=== PATIENT | female | born 1955 | race African-American/Black ===

== ENCOUNTER 2016-09-01 11:21 | Emergency (ER) | payer OTHER ==
[2016-09-01 11:28] VITALS: TEMP 98.6; BMI 21.2
[2016-09-01] MEDS ORDERED: OXYCODONE/APAP 5/325MG COMBO TABLET PO ONE (11:52)
[2016-09-01] MEDS ORDERED: ALBUTEROL SO4 0.083% IH SOL 2.5 MG/3 ML VIAL.NEB. NEB ONE ×2 (11:52→12:03)
[2016-09-01] MEDS ORDERED: OXYCODONE/APAP 5/325MG COMBO TABLET ONE (12:03)
--- NOTE | 2016-09-01 12:06 | PDOC ---
History of Present Illness - General History Source: Patient, Old Records - History of Present Illness Initial Comments: 09/01/16 12:12 The patient is a 61 year old female with a significant past medical history of seizure, anxiety, HLD, osteoporosis, and arthritis who presents to the Emergency Department with complaints of cough and cold-like symptoms since . She reports experiencing non-productive cough and nasal congestion. Pt reports discomfort in her chest due to heavy sneezing. Pt reports taking NyQuil for her cold, with no relief. Pt also reports worsening chronic pain due to arthritis. She states that she is on 10 mg Percocet every 8 hours, but she ran out of meds yesterday and her next appointment with Dr. Montgomery is next Friday. She denies fever, chills, abdominal pain, nausea, vomiting, diarrhea, hematuria, dysuria, headache, dizziness. (-) recent travel (-) sick contact SH:current everyday smoker PCP: Dr. Jonathon Sheldon Neurologist: Dr. Torri Montgomery <Corry Longo - Last Filed: 09/01/16 12:15> - General History Source: Patient Exam Limitations: No Limitations <Jonnie Rivas - Last Filed: 09/03/16 21:22> - General Chief Complaint: Cold Symptoms Stated Complaint: COUGH, COLD Time Seen by Provider: 09/01/16 11:28 Past History <Corry Longo - Last Filed: 09/01/16 12:15> - Past Medical History Hypercholesterolemia: Yes Seizures: Yes - Immunization History Immunization Up to Date: Yes - Psycho/Social/Smoking Cessation Hx Anxiety: No Suicidal Ideation: No Smoking Status: Yes Smoking History: Current every day smoker Have you smoked in the past 12 months: Yes Number of Cigarettes Smoked Daily: 20 Information on smoking cessation initiated: No 'Breaking Loose' booklet given: 09/28/13 Hx Alcohol Use: No Drug/Substance Use Hx: No Substance Use Type: None Hx Substance Use Treatment: No <Jonnie Rivas - Last Filed: 09/03/16 21:22> - Past Medical History Allergies/Adverse Reactions: Allergies Allergy/AdvReac Type Severity Reaction Status Date / Time No Known Allergies Allergy Verified 09/01/16 11:28 Home Medications: Ambulatory Orders Calcium Carbonate/Vitamin D3 [Calcarb 600 W-Vitamin D Tab] 1 each PO BID Gabapentin 600 mg PO BID 11/25/13 Levetiracetam 1,000 mg PO BID 11/25/13 Meloxicam [Mobic -] 7.5 mg PO BID #14 tablet 11/25/13 Simvastatin [Zocor -] 20 mg PO HS 11/25/13 Polyethylene Glycol 3350 [Miralax 255 gm Btl -] 17 gm PO DAILY #1 bottle Shark Liver Oil/Petrolat,Wht [Anusol Ointment] 1 applic RC TID #1 tube 08/17/15 Albuterol Sulfate Inhaler - [Ventolin HFA Inhaler -] 1 - 2 inh PO Q4H PRN #1 inhaler 09/01/16 Guaifenesin 200 mg PO Q6H PRN #15 tablet 09/01/16 Oxycodone HCl/Acetaminophen [Percocet 10-325 mg Tablet] 1 each PO Q8H PRN #5 tablet MDD 3 09/01/16 Oxycodone HCl/Acetaminophen [Percocet 5-325 mg Tablet] 1 tab PO Q8H PRN #6 tablet MDD 3 09/01/16 Review of Systems - Review of Systems Able to Perform ROS?: Yes Comments:: 09/01/16 12:16 GENERAL/CONSTITUTIONAL: No fever or chills. No weakness. HEAD, EYES, EARS, NOSE AND THROAT: No change in vision. No ear pain or discharge. No sore throat. CARDIOVASCULAR: Yes: chest discomfort No shortness of breath. RESPIRATORY: Yes: cough, nasal congestion No wheezing. GASTROINTESTINAL: No nausea, vomiting, diarrhea or constipation. GENITOURINARY: No dysuria, frequency, or change in urination. MUSCULOSKELETAL: Yes: generalized chronic pain No joint or muscle swelling. SKIN: No rash NEUROLOGIC: No headache, vertigo, loss of consciousness, or change in strength/ sensation. ENDOCRINE: No increased thirst. No abnormal weight change. HEMATOLOGIC/LYMPHATIC: No anemia, easy bleeding, or history of blood clots. ALLERGIC/IMMUNOLOGIC: No hives or skin allergy. All Other Systems: Reviewed and Negative <Corry Longo - Last Filed: 09/01/16 12:15> *Physical Exam - Vital Signs Last Vital Signs Temp Pulse Resp BP Pulse Ox 98.6 F 98 H 20 115/72 98 09/01/16 11:25 09/01/16 11:25 09/01/16 11:25 09/01/16 11:25 09/01/16 11:25 - Physical Exam Comments: 09/01/16 12:18 GENERAL: +Viral syndrome appearance. Awake, alert, and fully oriented HEAD: No signs of trauma EYES: PERRLA, EOMI, sclera anicteric, conjunctiva clear ENT: Auricles normal inspection, hearing grossly normal, nares patent, oropharynx clear without exudates. Moist mucosa NECK: Normal ROM, supple, no lymphadenopathy, JVD, or masses LUNGS: Breath sounds equal, clear to auscultation bilaterally. No wheezes, and no crackles HEART: Regular rate and rhythm, normal S1 and S2, no murmurs, rubs or gallops ABDOMEN: Soft, nontender, normoactive bowel sounds. No guarding, no rebound. No masses EXTREMITIES: Normal range of motion, no edema. No clubbing or cyanosis. No cords, erythema, or tenderness NEUROLOGICAL: Cranial nerves II through XII grossly intact. Normal speech, normal gait SKIN: Warm, Dry, normal turgor, no rashes or lesions noted. <Corry Longo - Last Filed: 09/01/16 12:15> - Vital Signs Last Vital Signs Temp Pulse Resp BP Pulse Ox 98.6 F 98 H 20 115/72 98 09/01/16 11:25 09/01/16 11:25 09/01/16 11:25 09/01/16 11:25 09/01/16 11:25 <Jonnie Rivas - Last Filed: 09/03/16 21:22> ED Treatment Course - Medications Given in the ED: ED Medications Discontinued Medications Generic Name Dose Route Start Last Admin Trade Name Freq PRN Reason Stop Dose Admin Albuterol Sulfate 1 amp 09/01/16 11:52 09/01/16 12:06 Ventolin 0.083% Nebulizer Soln - NEB 09/01/16 11:53 1 amp ONCE ONE Administration Oxycodone/Acetaminophen 2 combo 09/01/16 11:52 09/01/16 12:06 Percocet 5/325 - PO 09/01/16 11:53 2 combo ONCE ONE Administration <Corry Longo - Last Filed: 09/01/16 12:15> Medical Decision Making - Medical Decision Making 09/01/16 12:03 A portion of this note was documented by scribe services under my direction. I have reviewed the details of the note, within reason, and agree with the documentation with the following case summary and management plan written by me. Patient treated in the ED. Nursing notes are reviewed and incorporated into the medical decision-making. Vital signs reviewed. Peripheral IV access obtained by the nurse, laboratory studies are drawn and sent, reviewed and interpreted by myself. Vital Signs Temp Pulse Resp BP Pulse Ox 98.6 F 98 H 20 115/72 98 09/01/16 11:25 09/01/16 11:25 09/01/16 11:25 09/01/16 11:25 09/01/16 11:25 61-year-old female with past medical history of chronic pain secondary to arthritis on 10 mg Percocets every 8 hours, current smoker, hyperlipidemia, seizure disorder presents to the emergency Department with cold like symptoms. Patient reports 3 days of the symptoms which she's having body aches, chest congestion, isn't congestion. Denies fevers or chills. Denies sick contacts. Patient also reports that she had ran out of her ten Percocets yesterday. Patient reports that she's been having worsening pain and has been taking extra dose or 2. I had instructed the patient that he typically do not fill out long- term pain medications. She tells me that her last occasion refill was on August 09 and is aware that she is ahead of schedule. I had confirmed this with [facility] registry Reference #: [id number]. The patient has an appointment with her doctor in 2 days. Will write 5 pills prescription for hold over. Supportive care for the viral syndrome. Pt's brother will picker tender helper the patient. I discussed the physical exam findings, ancillary test results and final diagnoses with the patient. I answered all of the patient's questions. The patient was satisfied with the care received and felt comfortable with the discharge plan and treatment plan. The patient will call their primary care physician within 24 hours to arrange follow-up and will return to the Emergency Department with any new, persistant or worsening symptoms. <Jonnie Rivas - Last Filed: 09/03/16 21:22> *DC/Admit/Observation/Transfer - Attestations Scribe Attestion: 09/01/16 12:19 Documentation prepared by Corry Longo, acting as medical equipment repairer for Jonnie Rivas MD. <Corry Longo - Last Filed: 09/01/16 12:15> - Discharge Dispostion Admit: No <Jonnie Rivas - Last Filed: 09/03/16 21:22> Diagnosis at time of Disposition: Viral syndrome Chronic pain Qualifiers: Chronic pain type: chronic pain syndrome Qualified Code(s): G89.4 - Chronic pain syndrome - Discharge Dispostion Disposition: HOME Condition at time of disposition: Stable - Prescriptions Prescriptions: Guaifenesin 200 mg PO Q6H PRN #15 tablet PRN Reason: Cough Oxycodone HCl/Acetaminophen [Percocet 10-325 mg Tablet] 1 each PO Q8H PRN #5 tablet MDD 3 PRN Reason: Pain Oxycodone HCl/Acetaminophen [Percocet 5-325 mg Tablet] 1 tab PO Q8H PRN #6 tablet MDD 3 PRN Reason: Pain Albuterol Sulfate Inhaler - [Ventolin HFA Inhaler -] 1 - 2 inh PO Q4H PRN #1 inhaler PRN Reason: Cough - Referrals Referrals: Jonathon Sheldon MD [Primary Care Provider] - Torri Banerjee MD [Staff Physician] - - Patient Instructions Printed Discharge Instructions: DI for Viral Upper Respiratory Infection -- Adult Additional Instructions: Take 2 puff of albuterol every 4 hours as needed for cough. Please take the cough medications prescribed to you as needed. Follow up with your doctor on Friday
[2016-09-01 12:34] VITALS: BP 132/79; PULSE 90
== END 2016-09-01 12:36 | disposition home or self-care (01) ==
LOC: JER 11:21
PROC: 3E0F7GC Introduction of Other Therapeutic Substance into Respiratory Tract, Via Natural or Artificial Opening (ICD-10-PCS; principal; 2016-09-01)
DX: B34.9 Viral infection, unspecified (principal); G89.4 Chronic pain syndrome; G40.909 Epilepsy, unspecified, not intractable, without status epilepticus; F41.9 Anxiety disorder, unspecified; M81.0 Age-related osteoporosis without current pathological fracture; M19.90 Unspecified osteoarthritis, unspecified site; F17.210 Nicotine dependence, cigarettes, uncomplicated
CPT/HCPCS: 94640; 99281-25

== ENCOUNTER 2016-09-04 03:47 | Emergency (ER) | payer OTHER ==
[2016-09-04 04:11] VITALS: BP 114/88; PULSE 82; TEMP 97.6; BMI 22.8
[2016-09-04] MEDS ORDERED: OXYCODONE/APAP 5/325MG COMBO TABLET PO ONE (04:22)
--- NOTE | 2016-09-04 04:23 | PDOC ---
History of Present Illness - General History Source: Patient <Giorgi Blanchard - Last Filed: 09/04/16 04:22> - General History Source: Patient Exam Limitations: No Limitations - History of Present Illness Initial Comments: 09/04/16 04:28 The patient is a 61 year old female with significant past medical history of hyperlipidemia, seizure disorder, and chronic pain who presents to the ED with generalized chronic pain. Patient reports she ran out of her prescription ( percocet) a couple of days ago and presents today with worsening pain. She states she is due for a refill in the morning. The patient denies fever, chills, cough, SOB, chest pain, and palpitations. The patient denies abdominal pain, nausea, vomiting, and diarrhea. Allergies: NKDA Social History: Current smoker (PPD) Past Surgical History: None reported PCP: Dr. Jonathon Sheldon <Rebecca Turcios - Last Filed: 09/04/16 04:28> - General Chief Complaint: Chronic pain Stated Complaint: GENERALIZED PAIN Time Seen by Provider: 09/04/16 04:16 Past History - Past Medical History Hypercholesterolemia: Yes Seizures: Yes - Immunization History Immunization Up to Date: Yes - Psycho/Social/Smoking Cessation Hx Anxiety: No Suicidal Ideation: No Smoking Status: Yes Smoking History: Current every day smoker Have you smoked in the past 12 months: Yes Number of Cigarettes Smoked Daily: 20 Information on smoking cessation initiated: No 'Breaking Loose' booklet given: 09/28/13 Hx Alcohol Use: No Drug/Substance Use Hx: No Substance Use Type: None Hx Substance Use Treatment: No <Giorgi Blanchard - Last Filed: 09/04/16 04:22> <Rebecca Turcios - Last Filed: 09/04/16 04:28> - Past Medical History Allergies/Adverse Reactions: Allergies Allergy/AdvReac Type Severity Reaction Status Date / Time No Known Allergies Allergy Verified 09/04/16 04:11 Home Medications: Ambulatory Orders Calcium Carbonate/Vitamin D3 [Calcarb 600 W-Vitamin D Tab] 1 each PO BID Gabapentin 600 mg PO BID 11/25/13 Levetiracetam 1,000 mg PO BID 11/25/13 Meloxicam [Mobic -] 7.5 mg PO BID #14 tablet 11/25/13 Simvastatin [Zocor -] 20 mg PO HS 11/25/13 Polyethylene Glycol 3350 [Miralax 255 gm Btl -] 17 gm PO DAILY #1 bottle Shark Liver Oil/Petrolat,Wht [Anusol Ointment] 1 applic RC TID #1 tube 08/17/15 Albuterol Sulfate Inhaler - [Ventolin HFA Inhaler -] 1 - 2 inh PO Q4H PRN #1 inhaler 09/01/16 Guaifenesin 200 mg PO Q6H PRN #15 tablet 09/01/16 Oxycodone HCl/Acetaminophen [Percocet 10-325 mg Tablet] 1 each PO Q8H PRN #5 tablet MDD 3 09/01/16 Oxycodone HCl/Acetaminophen [Percocet 5-325 mg Tablet] 1 tab PO Q8H PRN #6 tablet MDD 3 09/01/16 Review of Systems - Review of Systems Able to Perform ROS?: Yes Comments:: 09/04/16 04:28 CONSTITUTIONAL: Absent: fever, no chills, no fatigue EYES: Absent: visual changes ENT: Absent: ear pain, no sore throat CARDIOVASCULAR: Absent: chest pain, no palpitations RESPIRATORY: Absent: cough, no SOB GI: Absent: abdominal pain, no nausea, no vomiting, no constipation, no diarrhea GENITOURINARY: Absent: dysuria, no frequency, no hematuria MUSKULOSKELETAL: +generalized chronic pain SKIN: Absent: rash NEURO: Absent: headache <LuizarrRebecca stone - Last Filed: 09/04/16 04:28> *Physical Exam - Vital Signs Last Vital Signs Temp Pulse Resp BP Pulse Ox 97.6 F 82 18 114/88 99 09/04/16 04:09 09/04/16 04:09 09/04/16 04:09 09/04/16 04:09 09/04/16 04:09 <Giorgi Blanchard - Last Filed: 09/04/16 04:22> - Vital Signs Last Vital Signs Temp Pulse Resp BP Pulse Ox 97.6 F 82 18 114/88 99 09/04/16 04:09 09/04/16 04:09 09/04/16 04:09 09/04/16 04:09 09/04/16 04:09 - Physical Exam Comments: 09/04/16 04:28 GENERAL: Well-appearing, well-nourished. No apparent distress. HEENT: Normocephalic, atraumatic. PERRL, EOM intact. CARDIOVASCULAR: Normal S1, S2. Regular rate and rhythm. PULMONARY: Clear to auscultation bilaterally. ABDOMEN: Soft, non-distended, non-tender. EXTREMITIES: Normal ROM in all four extremities. No gross deformities. SKIN: Warm, dry. No rash NEUROLOGICAL: No focal neurological deficits. <Rebecca Turcios - Last Filed: 09/04/16 04:28> Medical Decision Making - Medical Decision Making 09/04/16 04:23 Dr. Blanchard: The scribe's documentation has been prepared under my direction and personally reviewed by me in its entirery. I confirm that the note above accurately reflects all work, treatment, procedures, and medical decision making performed by me. <Giorgi Blanchard - Last Filed: 09/04/16 04:22> *DC/Admit/Observation/Transfer - Discharge Dispostion Admit: No <Giorgi Blanchard - Last Filed: 09/04/16 04:22> - Attestations Scribe Attestion: 09/04/16 04:28 Documentation prepared by Rebecca Turcios, acting as medical laboratory technical officer for Giorgi Blanchard MD <Rebecca Turcios - Last Filed: 09/04/16 04:28> Diagnosis at time of Disposition: Chronic pain - Discharge Dispostion Disposition: HOME Condition at time of disposition: Stable - Referrals Referrals: Jonathon Sheldon MD [Primary Care Provider] - - Patient Instructions Printed Discharge Instructions: DI for Chronic Pain -- Adult
[2016-09-04] MEDS ORDERED: OXYCODONE/APAP 5/325MG COMBO TABLET ONE (04:30)
== END 2016-09-04 04:43 | disposition home or self-care (01) ==
LOC: JER 03:47
DX: G89.29 Other chronic pain (principal); G40.909 Epilepsy, unspecified, not intractable, without status epilepticus; E78.5 Hyperlipidemia, unspecified; F17.210 Nicotine dependence, cigarettes, uncomplicated
CPT/HCPCS: 99282-25

== ENCOUNTER 2017-01-28 13:15 | Emergency (ER) | payer OTHER ==
[2017-01-28 13:23] VITALS: TEMP 97.4; BMI 21.7
--- NOTE | 2017-01-28 13:57 | PDOC ---
History of Present Illness <Jorge Schneider - Last Filed: 01/28/17 17:43> - History of Present Illness Initial Comments: 01/28/17 15:51 The patient is a 62 year old female, with a significant past medical history of hyperlipidemia, anxiety, osteoporosis, who presents to the emergency department complaining of palpitations, diffuse body pain for about 4 days and is requesting percocet today. The patient states she can not find her percocets at home, which she states she takes daily for chronic joint and back pains, and would like a new prescription at this time. She states her sister last week and has been feeling anxious. The patient reports feeling intermittent chest pain and palpitations for the past couple of days. She denies any upper extremity complaints. Secondarily, the patient states she feels she is "falling apart". She denies shortness of breath, and dizziness. She denies fever, chills, nausea , vomit, diarrhea and constipation. She denies dysuria, frequency, urgency and hematuria. Allergies: NKDA <Kaylah Godoy - Last Filed: 01/28/17 18:24> - General Chief Complaint: Chest Pain Stated Complaint: PALPITATIONS, CHILLS Past History - Past Medical History Hypercholesterolemia: Yes Seizures: Yes Other medical history: Pain on knees, back - Immunization History Immunization Up to Date: Yes - Psycho/Social/Smoking Cessation Hx Anxiety: No Suicidal Ideation: No Smoking Status: Yes Smoking History: Current every day smoker Have you smoked in the past 12 months: Yes Number of Cigarettes Smoked Daily: 20 Information on smoking cessation initiated: Yes 'Breaking Loose' booklet given: 01/28/17 Hx Alcohol Use: No Drug/Substance Use Hx: No Substance Use Type: None Hx Substance Use Treatment: No <Jorge Schneider - Last Filed: 01/28/17 17:43> <Kaylah Godoy - Last Filed: 01/28/17 18:24> - Past Medical History Allergies/Adverse Reactions: Allergies Allergy/AdvReac Type Severity Reaction Status Date / Time No Known Allergies Allergy Verified 01/28/17 13:23 Home Medications: Ambulatory Orders Calcium Carbonate/Vitamin D3 [Calcarb 600 W-Vitamin D Tab] 1 each PO BID Gabapentin 600 mg PO BID 11/25/13 Levetiracetam 1,000 mg PO BID 11/25/13 Simvastatin [Zocor -] 20 mg PO HS 11/25/13 Albuterol Sulfate Inhaler - [Ventolin HFA Inhaler -] 1 - 2 inh PO Q4H PRN #1 inhaler 09/01/16 Oxycodone HCl/Acetaminophen [Percocet 5-325 mg Tablet] 1 tab PO Q8H PRN #6 tablet MDD 3 09/01/16 Oxycodone HCl/Acetaminophen [Percocet 5-325 mg Tablet] 1 - 2 tab PO Q6H #20 tab MDD 6 01/28/17 Review of Systems - Review of Systems Able to Perform ROS?: Yes Comments:: 01/28/17 15:58 GENERAL/CONSTITUTIONAL: No fever or chills. No weakness. HEAD, EYES, EARS, NOSE AND THROAT: No change in vision. No ear pain or discharge. No sore throat. CARDIOVASCULAR: (+) Palpitations and intermittent chest pain. No shortness of breath. RESPIRATORY: No cough, wheezing, or hemoptysis. GASTROINTESTINAL: No nausea, vomiting, diarrhea or constipation. GENITOURINARY: No dysuria, frequency, or change in urination. MUSCULOSKELETAL: (+) diffuse muscle aches. No joint swelling. SKIN: No rash NEUROLOGIC: No headache, vertigo, loss of consciousness, or change in strength/ sensation. ENDOCRINE: No increased thirst. No abnormal weight change. HEMATOLOGIC/LYMPHATIC: No anemia, easy bleeding, or history of blood clots. ALLERGIC/IMMUNOLOGIC: No hives or skin allergy. <Kaylah Godoy - Last Filed: 01/28/17 18:24> *Physical Exam - Vital Signs Last Vital Signs Temp Pulse Resp BP Pulse Ox 97.4 F L 94 H 18 110/79 98 01/28/17 13:21 01/28/17 13:21 01/28/17 13:21 01/28/17 13:21 01/28/17 13:21 <Jorge Schneider - Last Filed: 01/28/17 17:43> - Vital Signs Last Vital Signs Temp Pulse Resp BP Pulse Ox 97.4 F L 94 H 18 110/79 98 01/28/17 13:21 01/28/17 13:21 01/28/17 13:21 01/28/17 13:21 01/28/17 13:21 - Physical Exam Comments: 01/28/17 15:59 GENERAL: (+) anxious appearing, crying. Awake, alert, and fully oriented, in no acute distress HEAD: No signs of trauma EYES: PERRLA, EOMI, sclera anicteric, conjunctiva clear ENT: Auricles normal inspection, hearing grossly normal, nares patent, oropharynx clear without exudates. Moist mucosa NECK: Normal ROM, supple, no lymphadenopathy, JVD, or masses LUNGS: Breath sounds equal, clear to auscultation bilaterally. No wheezes, and no crackles HEART: Regular rate and rhythm, normal S1 and S2, no murmurs, rubs or gallops ABDOMEN: Soft, nontender, normoactive bowel sounds. No guarding, no rebound. No masses EXTREMITIES: Normal range of motion, no edema. No clubbing or cyanosis. No cords, erythema, or tenderness NEUROLOGICAL: Cranial nerves II through XII grossly intact. Normal speech, normal gait SKIN: Warm, Dry, normal turgor, no rashes or lesions noted. <Kaylah Godoy - Last Filed: 01/28/17 18:24> Heart Score/ECG Review - ECG Intrepretation Comment:: 01/28/17 15:59 EKG was read at 13:[address] Schneider Impression: Normal sinus rhythm <Kaylah Godoy - Last Filed: 01/28/17 18:24> ED Treatment Course - LABORATORY CBC & Chemistry Diagram: 01/28/17 15:30 01/28/17 15:30 <Jorge Schneider - Last Filed: 01/28/17 17:43> - LABORATORY CBC & Chemistry Diagram: 01/28/17 15:30 01/28/17 15:30 - RADIOLOGY Radiograph Interpretation: 01/28/17 17:00 Preliminary read of the CXR by Dr. Schneider Impression: No active pulmonary disease - Medications Given in the ED: ED Medications Discontinued Medications Generic Name Dose Route Start Last Admin Trade Name Freq PRN Reason Stop Dose Admin Lorazepam 2 mg 01/28/17 14:38 01/28/17 14:50 Ativan - PO 01/28/17 14:39 2 mg ONCE ONE Administration Ondansetron HCl 8 mg 01/28/17 14:38 01/28/17 14:50 Zofran Odt - SL 01/28/17 14:39 8 mg ONCE ONE Administration Oxycodone/Acetaminophen 2 combo 01/28/17 14:38 01/28/17 14:52 Percocet 5/325 - PO 01/28/17 14:39 2 combo ONCE ONE Administration <Kaylah Godoy - Last Filed: 01/28/17 18:24> Medical Decision Making - Medical Decision Making 01/28/17 16:00 The patient is a 62 year old female who presents with palpitations and chest pain s/p her sister's 4 days ago. The patients medical history is significant for osteoporosis, hyperlipidemia, and anxiety. I will obtain to rule out <Kaylah Godoy - Last Filed: 01/28/17 18:24> *DC/Admit/Observation/Transfer - Discharge Dispostion Admit: No - Attestations Physician Attestion: 01/28/17 13:57 I, Dr. Jorge Schneider, attest that this document has been prepared under my direction and personally reviewed by me in its entirety. I further attest, that it accurately reflects all work, treatment, procedures and medical decision -making performed by me. <Jorge Schneider - Last Filed: 01/28/17 17:43> - Attestations Scribe Attestion: 01/28/17 16:00 Documentation prepared by Kaylah Godoy, acting as medical safety director for Jorge Schneider DO <Kaylah Godoy - Last Filed: 01/28/17 18:24> Diagnosis at time of Disposition: Grief, Chronic pain disorder - Discharge Dispostion Disposition: HOME Condition at time of disposition: Good - Prescriptions Prescriptions: Oxycodone HCl/Acetaminophen [Percocet 5-325 mg Tablet] 1 - 2 tab PO Q6H #20 tab MDD 6 - Referrals Referrals: Jonathon Sheldon MD [Primary Care Provider] - - Patient Instructions Printed Discharge Instructions: Unique Concerns When Grieving for a Sudden Loss , DI for Chronic Pain -- Adult Additional Instructions: Take good care of yourself, you have many years to go. Best-Dr. Jorge Schneider
[2017-01-28] MEDS ORDERED: LORazepam 1 MG TABLET PO ONE (14:38)
[2017-01-28] MEDS ORDERED: OXYCODONE/APAP 5/325MG COMBO TABLET PO ONE (14:38)
[2017-01-28] MEDS ORDERED: ONDANSETRON *ODT* 4 MG TABLET SL ONE (14:38)
[2017-01-28] MEDS ORDERED: LORazepam 0.5 MG TABLET ONE (14:45)
[2017-01-28] MEDS ORDERED: OXYCODONE/APAP 5/325MG COMBO TABLET ONE (14:45)
[2017-01-28] MEDS ORDERED: ONDANSETRON *ODT* 4 MG TABLET ONE ×2 (14:46→14:51)
[2017-01-28 15:49] LABS: BASOPHIL 0.8 % (0-2.0); EOSINOPHIL 2.7 % (0-4.5); MCH 30.6 pg (25.7-33.7); MCHC 33.8 g/dl (32.0-36.0); MEAN CELL VOLUME 90.7 fl (80-96); MEAN PLT VOLUME 9.3 fl (7.5-11.1); NEUTROPHILS 49.5 % (42.8-82.8); PLATELET COUNT 200 K/MM3 (134-434); RDW 14.2 % (11.6-15.6); WHITE BLOOD COUNT 6.5 K/mm3 (4.0-10.0)
[2017-01-28 16:00] LABS: ALBUMIN 3.5 g/dl (3.4-5.0); ANION GAP 9 (8-16); BILIRUBIN,TOTAL 0.4 mg/dL (0.2-1.0); CALCIUM 8.9 mg/dL (8.5-10.1); CO2 25 mmol/L (21-32); CREATININE 0.6 mg/dL (0.55-1.02); GLUCOSE,RANDOM 69 mg/dL (74-106); SGOT/AST 20 U/L (15-37); SGPT/ALT 14 U/L (12-78); TOT PROT 6.6 g/dl (6.4-8.2)
[2017-01-28 16:02] LABS: ALK PHOS 78 U/L (45-117); TROPONIN I < 0.02 ng/ml (0.00-0.05)
[2017-01-28 16:05] LABS: INR 1.09 (0.82-1.09)
[2017-01-28 17:31] LABS: URINE APPEARANCE CLEAR; URINE BILIRUBIN NEGATIVE (NEGATIVE); URINE COLOR STRAW; URINE GLUCOSE (UA) NEGATIVE (NEGATIVE); URINE KETONE NEGATIVE (NEGATIVE); URINE LEUK ESTERASE NEGATIVE (NEGATIVE); URINE NITRITE NEGATIVE (NEGATIVE); URINE PROTEIN NEGATIVE (NEGATIVE); URINE UROBILINOGEN NEGATIVE E.U./dl (0.2-1.0)
[2017-01-28 17:36] LABS: URINE BLOOD 1+ (NEGATIVE)
[2017-01-28 17:40] LABS: URINE MUCUS RARE; URINE RBC <1 /hpf (0-3); URINE WBC 1 /hpf (3-5)
[2017-01-28 17:59] VITALS: BP 120/82; PULSE 88
[2017-01-28 18:06] LABS: URINE MARIJUANA THC NEGATIVE ng/ml (CUTOFF=50)
--- NOTE | 2017-01-29 12:33 | EKG ---
Test Reason : Blood Pressure : / mmHG Vent. Rate : 087 BPM Atrial Rate : 087 BPM P-R Int : 156 ms QRS Dur : 086 ms QT Int : 356 ms P-R-T Axes : 071 048 071 degrees QTc Int : 428 ms NORMAL SINUS RHYTHM NORMAL ECG WHEN COMPARED WITH ECG OF 07-JAN-2009 00:01, NO SIGNIFICANT CHANGE WAS FOUND Confirmed by MENDOZA MCDONNELL MD ([id number]) on 01/29/2017 12:33:01 PM Referred By: Confirmed By:MENDOZA MCDONNELL MD
== END 2017-01-28 17:59 | disposition home or self-care (01) ==
LOC: JER 13:15
DX: G89.29 Other chronic pain (principal); F43.21 Adjustment disorder with depressed mood; F41.9 Anxiety disorder, unspecified
CPT/HCPCS: 36415; 71010-TC; 80053; 80307; 81003; 81015; 82550; 83690; 84484; 85025; 85610; 93005; 93010; 99283-25

== ENCOUNTER 2017-05-22 09:42 | Emergency (ER) | payer OTHER ==
[2017-05-22 10:09] VITALS: BP 111/69; PULSE 94; TEMP 98.9; BMI 23.8
--- NOTE | 2017-05-22 10:32 | PDOC ---
History of Present Illness - General History Source: Patient Exam Limitations: No Limitations - History of Present Illness Initial Comments: 05/22/17 11:41 The patient is a 62 year old female with significant past medical history of hyperlipidemia, seizure disorder, and chronic back and knee pain who presents to the ED with generalized chronic pain. Patient reports she ran out of her 30 day supply prescription (percocet 10-325) last night at 2am and presents today with pain. She states that her next appointment with pain management doctor is june 03. She notes that she saw her PMD on Friday who gave her a referral to detox center. Patient states that on Friday, she spent 7 hours at [facility] and was not admitted, because she was told that the doctor in detox told her she couldnt detox because of her chronic pain for which she will take percocet again. Patient states that she takes up 10 percocet per day but is normally prescribed 10 mg 325 and should be taking no more than 4 pills a day. According to [facility], her current supply is set to 06/01/17. She is requesting a refill of her percocet here. The patient denies fever, chills, cough, SOB, chest pain, and palpitations. The patient denies abdominal pain, nausea, vomiting, and diarrhea. Allergies: NKDA Social History: Current smoker (PPD) Past Surgical History: None reported PCP: Dr. Jonathon Sheldon Pain Management - Lawson Crocker [phone] <Shelley Avalos - Last Filed: 05/22/17 11:43> <Zafar Mejias - Last Filed: 05/22/17 12:34> - General Chief Complaint: Pain Stated Complaint: BODY PAIN Time Seen by Provider: 05/22/17 10:08 Past History <Shelley Avalos - Last Filed: 05/22/17 11:43> - Past Medical History Hypercholesterolemia: Yes Seizures: Yes - Immunization History Immunization Up to Date: Yes - Suicide/Smoking/Psychosocial Hx Smoking Status: Yes Smoking History: Current every day smoker Have you smoked in the past 12 months: Yes Number of Cigarettes Smoked Daily: 20 Information on smoking cessation initiated: No 'Breaking Loose' booklet given: 01/28/17 Hx Alcohol Use: No Drug/Substance Use Hx: No Substance Use Type: None Hx Substance Use Treatment: No <Zafar Mejias - Last Filed: 05/22/17 12:34> - Past Medical History Allergies/Adverse Reactions: Allergies Allergy/AdvReac Type Severity Reaction Status Date / Time No Known Allergies Allergy Verified 05/22/17 10:09 Home Medications: Ambulatory Orders Gabapentin 600 mg PO BID 11/25/13 Levetiracetam 1,000 mg PO BID 11/25/13 Simvastatin [Zocor -] 20 mg PO HS 11/25/13 Albuterol Sulfate Inhaler - [Ventolin HFA Inhaler -] 1 - 2 inh PO Q4H PRN #1 inhaler 09/01/16 Oxycodone HCl/Acetaminophen [Percocet 5-325 mg Tablet] 1 - 2 tab PO Q6H #20 tab MDD 6 01/28/17 Review of Systems - Review of Systems Able to Perform ROS?: Yes Comments:: 05/22/17 11:42 GENERAL/CONSTITUTIONAL: No fever or chills. No weakness. HEAD, EYES, EARS, NOSE AND THROAT: No change in vision. No ear pain or discharge. No sore throat. GASTROINTESTINAL: No nausea, vomiting, diarrhea or constipation. GENITOURINARY: No dysuria, frequency, or change in urination. CARDIOVASCULAR: No chest pain or shortness of breath. RESPIRATORY: No cough, wheezing, or hemoptysis. MUSCULOSKELETAL: +chronic back pain and knee pain. No neck pain. SKIN: No rash NEUROLOGIC: No headache, vertigo, loss of consciousness, or change in strength/ sensation. ENDOCRINE: No increased thirst. No abnormal weight change. HEMATOLOGIC/LYMPHATIC: No anemia, easy bleeding, or history of blood clots. ALLERGIC/IMMUNOLOGIC: No hives or skin allergy. <Shelley Avalos - Last Filed: 05/22/17 11:43> *Physical Exam - Vital Signs Last Vital Signs Temp Pulse Resp BP Pulse Ox 98.9 F 94 H 18 111/69 100 05/22/17 10:02 05/22/17 10:02 05/22/17 10:02 05/22/17 10:02 05/22/17 10:02 - Physical Exam Comments: 05/22/17 11:42 GENERAL: Awake, alert, and fully oriented, in no acute distress HEAD: No signs of trauma EYES: PERRLA, EOMI, sclera anicteric, conjunctiva clear ENT: Auricles normal inspection, hearing grossly normal, nares patent, oropharynx clear without exudates. Moist mucosa NECK: Normal ROM, supple, no lymphadenopathy, JVD, or masses LUNGS: Breath sounds equal, clear to auscultation bilaterally. No wheezes, and no crackles HEART: Regular rate and rhythm, normal S1 and S2, no murmurs, rubs or gallops ABDOMEN: Soft, nontender, normoactive bowel sounds. No guarding, no rebound. No masses EXTREMITIES: Normal range of motion, no edema. No clubbing or cyanosis. No cords, erythema, or tenderness BACK: No midline spinal tendernes in cervial/throacic/lumbar region NEUROLOGICAL: Normal speech, cranial nerves intact, negative pronator drift, 5/ 5 strength in all 4 extremities, normal sensation to light touch in all 4 extremities, normal cerebellar exam, normal gait, normal reflexes and tone SKIN: Warm, Dry, normal turgor, no rashes or lesions noted. <Shelley Avalos - Last Filed: 05/22/17 11:43> - Vital Signs Last Vital Signs Temp Pulse Resp BP Pulse Ox 98.9 F 94 H 18 111/69 100 05/22/17 10:02 05/22/17 10:02 05/22/17 10:02 05/22/17 10:02 05/22/17 10:02 <Zafar Mejias - Last Filed: 05/22/17 12:34> ED Treatment Course - Medications Given in the ED: ED Medications Discontinued Medications Generic Name Dose Route Start Last Admin Trade Name Paola PRN Reason Stop Dose Admin Oxycodone/Acetaminophen 2 combo 05/22/17 11:26 05/22/17 11:37 Percocet 5/325 - PO 05/22/17 11:27 2 combo ONCE ONE Administration <Shelley Avalos - Last Filed: 05/22/17 11:43> Medical Decision Making - Medical Decision Making 05/22/17 11:30 A call was placed to Dr. Crocker at his service. Awaiting a call back. 05/22/17 11:45 A second call was placed to Dr. Crocker at his service. Awaiting a call back. <Koziy,Shelley - Last Filed: 05/22/17 11:43> - Medical Decision Making 05/22/17 11:38 62-year-old female with a history of chronic pain presents to the emergency department today requesting a refill of her Percocet. Patient has been taking more Percocet than prescribed over the last few days. She has not called her pain management doctor. Exam is unremarkable and vitals are unremarkable. Pt is ambulating around the ED with steady gait, in no acute distress and has stopped by my computer 4 times requesting her pain medication. -home dose of percocet to control pain -call Dr. Gibson to discuss, awaiting call back -case discussed with Marlin from case management to provide patient with outpatient resources as she does not wish to return to [facility] 05/22/17 12:25 Multiple calls have been made to Dr. Gibson with no call back. Pt currently refusing detox resources. Feels better after her home dose. Pt is ambulating in the ED, requesting DC. Will follow up with her primary doctor today or tomorrow. I discussed the physical exam findings, ancillary test results and final diagnoses with the patient. I answered all of the patient's questions. The patient was satisfied with the care received and felt comfortable with the discharge plan and treatment plan. The patient will call their primary care physician within 24 hours to arrange follow-up and will return to the Emergency Department with any new, persistent or worsening symptoms. <Zafar Mejias - Last Filed: 05/22/17 12:34> *DC/Admit/Observation/Transfer - Attestations Scribe Attestion: 05/22/17 11:42 Documentation prepared by ALIN Poon, acting as biomedical equipment technician for Zafar Mejias MD. <Shelley Avalos - Last Filed: 05/22/17 11:43> - Discharge Dispostion Admit: No - Transfer to Acute Care Facility Transfer comment: 05/22/17 12:34 I, Dr. Zafar Mejias MD, attest that this document has been prepared under my direction and personally reviewed by me in its entirety. I further attest, that it accurately reflects all work, treatment, procedures and medical decision -making performed by me. <Zafar Mejias - Last Filed: 05/22/17 12:34> Diagnosis at time of Disposition: Chronic pain Qualifiers: Chronic pain type: other chronic pain Qualified Code(s): G89.29 - Other chronic pain - Discharge Dispostion Disposition: HOME Condition at time of disposition: Stable - Referrals Referrals: Jonathon Sheldon MD [Primary Care Provider] -
== END 2017-05-22 12:40 | disposition home or self-care (01) ==
LOC: JER 09:42
DX: G89.29 Other chronic pain (principal); F17.210 Nicotine dependence, cigarettes, uncomplicated
CPT/HCPCS: 99282-25

== ENCOUNTER 2017-06-25 12:25 | Emergency (ER) | payer OTHER ==
[2017-06-25 12:29] VITALS: BP 120/86; PULSE 112; TEMP 98; BMI 23.8
--- NOTE | 2017-06-25 13:17 | PDOC ---
History of Present Illness - General Chief Complaint: RX Refill Stated Complaint: BODYACHE, PAIN Time Seen by Provider: 06/25/17 12:38 History Source: Patient Exam Limitations: No Limitations - History of Present Illness Initial Comments: 06/25/17 13:56 Patient is a 62-year-old female with chronic pain generalized. Patient is under the care of a chronic pain care doctor who gives her 120 tablets a month. She has been unable to sleep, and is taking medication during the night and is taking more then prescribed. Patient denies feeling that she will hurt herself or others upon arrival. VSS. Anxious. Past Medical History: chronic pain, back, knees, high cholesterol. Allergies: No known allergies Medications: See medication list Family History: Non-contributory Social History: Denies smoking, alcohol use, or IVDU Vital signs on arrival are notable for pulse of 112. Review of Systems GENERAL/CONSTITUTIONAL: No fever or chills. No weakness. No weight change. HEAD, EYES, EARS, NOSE AND THROAT: No change in vision. No ear pain or discharge. No sore throat. CARDIOVASCULAR: No chest pain or shortness of breath. RESPIRATORY: No cough, wheezing, or hemoptysis. GASTROINTESTINAL: No nausea, vomiting, diarrhea or constipation. No rectal bleeding. GENITOURINARY: No dysuria, frequency, or change in urination. MUSCULOSKELETAL: No joint or muscle swelling or pain. Generalized pain. SKIN : No rash or easy bruising. NEUROLOGIC: No headache, vertigo, loss of consciousness, or loss of sensation. PSYCHIATRIC: No depression or anxiety. ENDOCRINE: No increased thirst. No abnormal weight change. HEMATOLOGIC/LYMPHATIC: No anemia, easy bleeding, or history of blood clots. ALLERGIC/IMMUNOLOGIC: No hives or skin allergy. No latex allergy. Physical Exam: GENERAL: The patient is awake, alert, and fully oriented, in no acute distress. HEAD: Normal with no signs of trauma. EYES: Pupils equal, round and reactive to light, extraocular movements intact, sclera anicteric, conjunctiva clear. ENT: Ears normal, nares patent, oropharynx clear without exudates. Moist mucous membranes. No uvula deviation NECK: Normal range of motion, supple without lymphadenopathy, JVD, or masses. LUNGS: Breath sounds equal, clear to auscultation bilaterally. No wheezes, and no crackles. HEART: Regular rate and rhythm, normal S1 and S2 without murmur, rub or gallop. ABDOMEN: Soft, nontender, normoactive bowel sounds. No guarding, no rebound. No masses. No bruising or abrasions MUSCULOSKELETAL: Normal range of motion, no edema. No clubbing or cyanosis. No cords, erythema, or tenderness. No CVA Tenderness with fist. NEUROLOGICAL: Cranial nerves II through XII grossly intact. Normal speech, normal gait. PSYCH: Anxious SKIN: Warm, Dry, normal turgor, no rashes or lesions noted. Past History - Past Medical History Allergies/Adverse Reactions: Allergies Allergy/AdvReac Type Severity Reaction Status Date / Time No Known Allergies Allergy Verified 06/25/17 12:29 Home Medications: Ambulatory Orders Gabapentin 600 mg PO BID 11/25/13 Levetiracetam 1,000 mg PO BID 11/25/13 Simvastatin [Zocor -] 20 mg PO HS 11/25/13 Albuterol Sulfate Inhaler - [Ventolin HFA Inhaler -] 1 - 2 inh PO Q4H PRN #1 inhaler 09/01/16 Oxycodone HCl/Acetaminophen [Percocet 5-325 mg Tablet] 1 - 2 tab PO Q6H #20 tab MDD 6 01/28/17 Hypercholesterolemia: Yes Seizures: Yes Other medical history: ARTHRITIS - Immunization History Immunization Up to Date: Yes - Suicide/Smoking/Psychosocial Hx Smoking Status: Yes Smoking History: Current every day smoker Have you smoked in the past 12 months: Yes Number of Cigarettes Smoked Daily: 20 Information on smoking cessation initiated: No 'Breaking Loose' booklet given: 01/28/17 Hx Alcohol Use: No Drug/Substance Use Hx: No Substance Use Type: None Hx Substance Use Treatment: No *Physical Exam - Vital Signs Last Vital Signs Temp Pulse Resp BP Pulse Ox 98.0 F 112 H 20 120/86 99 06/25/17 12:26 06/25/17 12:26 06/25/17 12:26 06/25/17 12:26 06/25/17 12:26 ED Treatment Course - Medications Given in the ED: ED Medications Discontinued Medications Generic Name Dose Route Start Last Admin Trade Name Freq PRN Reason Stop Dose Admin Oxycodone/Acetaminophen 1 combo 06/25/17 12:58 06/25/17 13:01 Percocet 5/325 - PO 06/25/17 12:59 1 combo ONCE ONE Administration Medical Decision Making - Medical Decision Making 06/25/17 13:56 A/P: Patient here requesting pain medication for generalized chronic pain. Patient admits to being under the care of a chronic lead painter. Currently taking 120 tablets per month and is taking more than prescribed she ran out of medication 2 days ago. [facility] accessed. This report was requested by: Lucita Martin | Reference #: [id number] You have not added a ONEL number. Keeping your ONEL number(s) up to date on the My ONEL Numbers page will enable the separation of your prescriptions from others ' in the search results. Others' Prescriptions Patient Name: Nan Lane Date: 1955 Address: [address] [place] [address] Sex: Female Rx Written Rx Dispensed Drug Quantity Days Supply Prescriber Name 06/02/2017 06/02/2017 endocet 10-325 mg tablet 120 30 Elzholz, Lawson 04/30/2017 05/02/2017 endocet 10-325 mg tablet 120 30 Elzholz, Lawson 04/01/2017 04/04/2017 endocet 10-325 mg tablet 120 30 Elzholz, Lawson 03/05/2017 03/07/2017 endocet 10-325 mg tablet 120 30 Elzholz, Lawson 02/04/2017 02/07/2017 endocet 10-325 mg tablet 120 30 Elzholz, Lawson 01/03/2017 01/07/2017 endocet 10-325 mg tablet 120 30 Elzholz, Lawson 12/02/2016 12/09/2016 endocet 10-325 mg tablet 120 30 Elzholz, Lawson 10/30/2016 11/11/2016 endocet 10-325 mg tablet 120 30 Elzholz, Lawson 10/07/2016 10/15/2016 endocet 10-325 mg tablet 120 30 Elzholz, Lawson 09/13/2016 09/16/2016 oxycodone-acetaminophen 5-325 mg tab 120 30 Elzholz, Lawson 09/03/2016 09/05/2016 endocet 10-325 mg tablet 30 30 Torri Banerjee MD 09/03/2016 09/04/2016 tramadol hcl 50 mg tablet 60 30 Torri Banerjee MD 08/09/2016 08/09/2016 endocet 10-325 mg tablet 90 30 Burak Tirado A (MD) 07/12/2016 07/12/2016 endocet 10-325 mg tablet 90 30 Burak Tirado A () Patient Name: Nan Lane Date: 1955 Address: [address] [place] [address] Sex: Female Rx Written Rx Dispensed Drug Quantity Days Supply Prescriber Name 01/28/2017 01/28/2017 oxycodone-acetaminophen 5-325 mg tab 20 2 Jorge Schneider DO 09/01/2016 09/01/2016 oxycodone-acetaminophen 5-325 mg tab 6 2 Jonnie Rivas () I have explained to patient that because she is prescribed 120 pills per month we cannot prescribe any medication at this time. I can give her 2 percocet tablets while in emergency department I have also offered patient access to the social and political studies professor to discuss possible rehabilitation. Patient reports that she went to rehabilitation last week and they said that it would not help her. If she gets off the medication she will still have generalized pain. I Have attempted to contact her chronic lead painter, not available by phone. Patient's vital signs are stable . I was unable to give her prescription for medication she told me "you making a big mistake" security called. One security arrived, patient was compliant. I have recommended to patient to go to [facility] [place], patient refused. To follow-up with chronic lead painter 06/25/17 14:12 *DC/Admit/Observation/Transfer Diagnosis at time of Disposition: Chronic pain disorder, Request for narcotic pain medication - Discharge Dispostion Disposition: HOME Condition at time of disposition: Good - Referrals Referrals: Jonathon Sheldon MD [Primary Care Provider] - - Patient Instructions Printed Discharge Instructions: DI for Taking Pain Medication Additional Instructions: Please follow up with chronic pain management Recommend detox program.
== END 2017-06-25 13:23 | disposition home or self-care (01) ==
LOC: JERFT 12:25
DX: G89.29 Other chronic pain (principal); E78.00 Pure hypercholesterolemia, unspecified; G43.909 Migraine, unspecified, not intractable, without status migrainosus; M12.9 Arthropathy, unspecified
CPT/HCPCS: 99281-25

== ENCOUNTER 2017-06-26 19:54 | Emergency (ER) | payer OTHER ==
--- NOTE | 2017-06-26 20:27 | PDOC ---
"History of Present Illness <Jorge Schneider - Last Filed: 06/26/17 20:43> - General History Source: Patient Exam Limitations: No Limitations - History of Present Illness Initial Comments: 06/26/17 21:04 The patient is a 62 year old female, with a significant past medical history of chronic back pain, HLD, seizures who presents to the emergency department with chronic knee and back pain. Patient was seen in ED yesterday for the same complaint however was not given medications.. Upon evaluation, patient is argumentative and is requesting 10 mg Percocet. <Dolores Murray - Last Filed: 06/26/17 21:04> - General Stated Complaint: PAIN Time Seen by Provider: 06/26/17 20:26 Past History - Past Medical History Hypercholesterolemia: Yes Seizures: Yes - Immunization History Immunization Up to Date: Yes - Suicide/Smoking/Psychosocial Hx Smoking Status: Yes Smoking History: Current every day smoker Have you smoked in the past 12 months: Yes Number of Cigarettes Smoked Daily: 20 'Breaking Loose' booklet given: 01/28/17 Hx Alcohol Use: No Drug/Substance Use Hx: No Substance Use Type: None Hx Substance Use Treatment: No <Jorge Schneider - Last Filed: 06/26/17 20:43> <Dolores Murray - Last Filed: 06/26/17 21:04> - Past Medical History Allergies/Adverse Reactions: Allergies Allergy/AdvReac Type Severity Reaction Status Date / Time No Known Allergies Allergy Verified 06/26/17 20:31 Home Medications: Ambulatory Orders Gabapentin 600 mg PO BID 11/25/13 Levetiracetam 1,000 mg PO BID 11/25/13 Simvastatin [Zocor -] 20 mg PO HS 11/25/13 Albuterol Sulfate Inhaler - [Ventolin HFA Inhaler -] 1 - 2 inh PO Q4H PRN #1 inhaler 09/01/16 Oxycodone HCl/Acetaminophen [Percocet 5-325 mg Tablet] 1 - 2 tab PO Q6H #20 tab MDD 6 01/28/17 Review of Systems - Review of Systems Able to Perform ROS?: Yes Comments:: 06/26/17 21:04 GENERAL/CONSTITUTIONAL: No fever or chills. No weakness. HEAD, EYES, EARS, NOSE AND THROAT: No change in vision. No ear pain or discharge. No sore throat. CARDIOVASCULAR: No chest pain or shortness of breath. RESPIRATORY: No cough, wheezing, or hemoptysis. GASTROINTESTINAL: No nausea, vomiting, diarrhea or constipation. GENITOURINARY: No dysuria, frequency, or change in urination. MUSCULOSKELETAL: No joint or muscle swelling or pain. + knee and back pain. SKIN: No rash NEUROLOGIC: No headache, vertigo, loss of consciousness, or change in strength/ sensation. ENDOCRINE: No increased thirst. No abnormal weight change. HEMATOLOGIC/LYMPHATIC: No anemia, easy bleeding, or history of blood clots. ALLERGIC/IMMUNOLOGIC: No hives or skin allergy. <Dolores Murray - Last Filed: 06/26/17 21:04> *Physical Exam - Vital Signs Last Vital Signs Temp Pulse Resp BP Pulse Ox 98.4 F 91 H 19 129/84 98 06/26/17 20:27 06/26/17 20:27 06/26/17 20:27 06/26/17 20:27 06/26/17 20:27 - Physical Exam Comments: 06/26/17 21:04 GENERAL: Awake, alert, and fully oriented, in no acute distress HEAD: No signs of trauma EYES: PERRLA, EOMI, sclera anicteric, conjunctiva clear ENT: Auricles normal inspection, hearing grossly normal, nares patent, oropharynx clear without exudates. Moist mucosa NECK: Normal ROM, supple, no lymphadenopathy, JVD, or masses LUNGS: Breath sounds equal, clear to auscultation bilaterally. No wheezes, and no crackles HEART: Regular rate and rhythm, normal S1 and S2, no murmurs, rubs or gallops ABDOMEN: Soft, nontender, normoactive bowel sounds. No guarding, no rebound. No masses EXTREMITIES: Normal range of motion, no edema. No clubbing or cyanosis. No cords, erythema, or tenderness NEUROLOGICAL: Cranial nerves II through XII grossly intact. Normal speech, normal gait SKIN: Warm, Dry, normal turgor, no rashes or lesions noted. <Dolores Murray - Last Filed: 06/26/17 21:04> ED Treatment Course - Medications Given in the ED: ED Medications Discontinued Medications Generic Name Dose Route Start Last Admin Trade Name Freq PRN Reason Stop Dose Admin Oxycodone/Acetaminophen 2 combo 06/26/17 20:37 06/26/17 20:54 Percocet 5/325 - PO 06/26/17 20:38 2 combo ONCE ONE Administration <Dolores Murray - Last Filed: 06/26/17 21:04> Medical Decision Making - Medical Decision Making 06/26/17 21:02 [facility] accessed. This report was requested by: Lucita Martin | Reference #: [id number] You have not added a ONEL number. Keeping your ONEL number(s) up to date on the My ONEL Numbers page will enable the separation of your prescriptions from others ' in the search results. Others' Prescriptions Patient Name: Nan Lane Date: 1955 Address: [address] [place] [address] Sex: Female Rx Written Rx Dispensed Drug Quantity Days Supply Prescriber Name 06/02/2017 06/02/2017 endocet 10-325 mg tablet 120 30 Elzholz, Lawson 04/30/2017 05/02/2017 endocet 10-325 mg tablet 120 30 Elzholz, Lawson 04/01/2017 04/04/2017 endocet 10-325 mg tablet 120 30 Elzholz, Lawson 03/05/2017 03/07/2017 endocet 10-325 mg tablet 120 30 Elzholz, Lawson 02/04/2017 02/07/2017 endocet 10-325 mg tablet 120 30 Elzholz, Lawson 01/03/2017 01/07/2017 endocet 10-325 mg tablet 120 30 Elzholz, Lawson 12/02/2016 12/09/2016 endocet 10-325 mg tablet 120 30 Elzholz, Lawson 10/30/2016 11/11/2016 endocet 10-325 mg tablet 120 30 Elzholz, Lawson 10/07/2016 10/15/2016 endocet 10-325 mg tablet 120 30 Elzholz, Lawson 09/13/2016 09/16/2016 oxycodone-acetaminophen 5-325 mg tab 120 30 Elzholz, Lawson 09/03/2016 09/05/2016 endocet 10-325 mg tablet 30 30 ChrissTorri knox MD 09/03/2016 09/04/2016 tramadol hcl 50 mg tablet 60 30 ChrissTorri knox MD 08/09/2016 08/09/2016 endocet 10-325 mg tablet 90 30 Burak Tirado A (MD) 07/12/2016 07/12/2016 endocet 10-325 mg tablet 90 30 Burak Tirado A () Patient Name: Nan Lane Date: 1955 Address: [address] [place] [address] Sex: Female Rx Written Rx Dispensed Drug Quantity Days Supply Prescriber Name 01/28/2017 01/28/2017 oxycodone-acetaminophen 5-325 mg tab 20 2 Jorge Schneider DO 09/01/2016 09/01/2016 oxycodone-acetaminophen 5-325 mg tab 6 2 Jonnie Rivas () <Dolores Murray - Last Filed: 06/26/17 21:04> *DC/Admit/Observation/Transfer - Discharge Dispostion Admit: No - Attestations Physician Attestion: 06/26/17 20:27 I, Dr. Jorge Schneider, attest that this document has been prepared under my direction and personally reviewed by me in its entirety. I further attest, that it accurately reflects all work, treatment, procedures and medical decision -making performed by me. <Jorge Schneider - Last Filed: 06/26/17 20:43> - Attestations Scribe Attestion: 06/26/17 21:04 Documentation prepared by Dolores Murray, acting as director medical surgical for Jorge Schneider MD/. <Dolores Murray - Last Filed: 06/26/17 21:04> Diagnosis at time of Disposition: Chronic pain of both knees - Discharge Dispostion Disposition: HOME Condition at time of disposition: Unchanged/Unknown - Referrals Referrals: Jonathon Sheldon MD [Primary Care Provider] - - Patient Instructions Printed Discharge Instructions: DI for Chronic Pain -- Adult Additional Instructions: Follow up with your Pain Managment Physician"
[2017-06-26 20:31] VITALS: BP 129/84; PULSE 91; TEMP 98.4; BMI 29.2
== END 2017-06-26 21:13 | disposition home or self-care (01) ==
LOC: JER 19:54
DX: M25.561 Pain in right knee (principal); M25.562 Pain in left knee; G89.29 Other chronic pain; M54.89 Other dorsalgia; Z86.69 Personal history of other diseases of the nervous system and sense organs
CPT/HCPCS: 99282-25

== ENCOUNTER 2018-10-16 11:53 | Emergency (ER) | payer OTHER ==
--- NOTE | 2018-10-16 12:07 | PDOC ---
History of Present Illness - General Stated Complaint: DETOX Time Seen by Provider: 10/16/18 12:05 History Source: Patient Exam Limitations: No Limitations - History of Present Illness Initial Comments: Pt is a 63 yo F, with PMH of chronic back/joint pain (with opiate use), sz of unknown etiology (well-controlled with Keppra >10 yrs), who is presenting with complaints of frontal pressure "like I have a block on my head," NBNB vomiting with nausea, loose stool, decreased PO food and fluid intake, and subjective chills x3 days. Pt has been tapered from Percocet (stopped taking 5/325 Qday) about 5-6 days ago with instructions from Dr. Banerjee (neurology). Pt stopped going to pain management with Dr. Rose in April 2018 because "they weren't treating [me] well". Pt denies any fevers, acute vision changes, syncope, chest pain, palpitations, SOB, urinary symptoms, or leg swelling. Social: Pt smokes 1.5 ppd. Denies any cigarette or drug use. Stopped taking opiate medications as above. Pt denies any recent travel or sick contacts. Surgical: no relevant history. Family: no relevant history. 10/16/18 13:15 Past History - Travel Traveled outside of the country in the last 30 days: No Close contact w/someone who was outside of country & ill: No - Past Medical History Allergies/Adverse Reactions: Allergies Allergy/AdvReac Type Severity Reaction Status Date / Time No Known Allergies Allergy Verified 10/16/18 12:24 Home Medications: Ambulatory Orders Gabapentin 600 mg PO BID 11/25/13 Levetiracetam 1,000 mg PO BID 11/25/13 Calcium Carbonate/Vitamin D3 [Calcium 600 + D3 Softgel] 1 each PO BID 08/15/17 Fluticasone Propionate [Flovent Diskus] 1 inh IH DAILY 08/15/17 Albuterol Sulfate [Proair Respiclick] 90 mcg IH BIDLASIX 10/25/17 Calcium Polycarbophil [Fiber Laxative] 625 mg PO DAILY 10/25/17 Ibuprofen [Motrin -] 800 mg PO TID PRN 10/25/17 Oxycodone HCl/Acetaminophen [Percocet 10-325 mg Tablet] 1 each PO QID 10/25/17 Oxycodone HCl/Acetaminophen [Oxycodon-Acetaminophen 7.5-325] 1 each PO QID 3 Days #12 tablet MDD 4 03/16/18 Oxycodone HCl/Acetaminophen [Percocet 5-325 mg Tablet] 1 tab PO QID #12 tablet MDD 4 03/16/18 Albuterol Sulfate Inhaler - [Ventolin HFA Inhaler -] 1 - 2 inh PO Q4H PRN #1 inhaler 10/16/18 Ondansetron [Zofran Odt -] 4 mg SL BID PRN #20 od.tablet 10/16/18 Anemia: No Asthma: Yes Cancer: No Cardiac Disorders: No CVA: No COPD: No CHF: No Dementia: No Diabetes: No GI Disorders: No Disorders: No HTN: No Hypercholesterolemia: Yes Liver Disease: No Seizures: Yes Thyroid Disease: No - Surgical History Orthopedic Surgery: Yes - Immunization History Immunization Up to Date: Yes - Suicide/Smoking/Psychosocial Hx Smoking Status: Yes Smoking History: Current every day smoker Have you smoked in the past 12 months: Yes Number of Cigarettes Smoked Daily: 20 'Breaking Loose' booklet given: 04/16/18 Hx Alcohol Use: No Drug/Substance Use Hx: No Substance Use Type: None Hx Substance Use Treatment: No Review of Systems - Review of Systems Able to Perform ROS?: Yes Is the patient limited Swedish proficient: No Constitutional: Yes: Chills, Loss of Appetite, Malaise, Weight Stable. No: Diaphoresis, Fever, Night Sweats, Weakness HEENTM: No: Blurred Vision, Recent change in vision, Nose Congestion, Throat Pain, Throat Swelling, Difficulty Swallowing Respiratory: No: Cough, Orthopnea, Shortness of Breath Cardiac (ROS): Yes: Lightheadedness. No: Chest Pain, Edema, Irregular Heart Rate, Palpitations, Syncope, Chest Tightness ABD/GI: Yes: See HPI, Constipated (chronic), Diarrhea (over past few days loose stool NB), Nausea, Poor Appetite, Poor Fluid Intake, Vomiting. No: Abd. Pain w / defecation, Rectal Bleeding, Indigestion, Abdominal cramping : No: Burning, Dysuria, Flank Pain, Pain Musculoskeletal: Yes: Back Pain, Joint Pain (chronic) Integumentary: Yes: Sweating. No: Rash Neurological: Yes: Headache. No: Numbness, Paresthesia, Seizure (remission >10 years), Tremors, Weakness, Unsteady Gait, Ataxia, Dizziness Psychiatric: Yes: Change in Appetite. No: Sleep Pattern Change Endocrine: No: Increased Urine, Change in Weight Hematologic/Lymphatic: No: Anemia, Blood Clots, Easy Bleeding, Easy Bruising All Other Systems: Reviewed and Negative *Physical Exam - Physical Exam Comments: Pt hypertensive, pt afebrile. Pt appears mildly anxious, normal body habitus. PE showed pt alert and oriented. couturiere generally intact, muscular strength and sensation intact. Eyes PERRLA, EOMI. Dry oral membranes, tongue fasciculations present. Oropharynx without erythema or exudates. No nasal congestion, hearing intact. Clear heart sounds, S1/S2, no JVD, b/l pedal edema, or heart murmur. Mild wheezing throughout, no respiratory distress, crackles, or accessory muscle use. No abdominal or CVA tenderness to palpation, no rebound, no guarding. Abdomen soft, non-distended, and with normoactive bowel sounds. No increased stool burden palpated. Skin without jaundice or rash. 10/16/18 13:12 ED Treatment Course - LABORATORY CBC & Chemistry Diagram: 10/16/18 13:10 10/16/18 13:10 Medical Decision Making - Medical Decision Making Pt was seen at bedside, also will be seen by attending Dr. Hamlin. Pt presenting with complaints of frontal pressure "like I have a block on my head," NBNB vomiting with nausea, loose stool, decreased PO food and fluid intake, and subjective chills x3 days. Pt has been tapered from Percocet (stopped taking 5/ 325 Qday) about 5-6 days ago with instructions from Dr. Banerjee (neurology). Pt stopped going to pain management with Dr. Rose in April 2018 because "they weren't treating [me] well". Pt denies any fevers, acute vision changes, syncope , chest pain, palpitations, SOB, urinary symptoms, or leg swelling. Pt hypertensive, pt afebrile. Pt appears mildly anxious, normal body habitus. PE showed pt alert and oriented. couturiere generally intact, muscular strength and sensation intact. Eyes PERRLA, EOMI. Dry oral membranes, tongue fasciculations present. Oropharynx without erythema or exudates. No nasal congestion, hearing intact. Clear heart sounds, S1/S2, no JVD, b/l pedal edema, or heart murmur. Mild wheezing throughout, no respiratory distress, crackles, or accessory muscle use. No abdominal or CVA tenderness to palpation, no rebound, no guarding. Abdomen soft, non-distended, and with normoactive bowel sounds. No increased stool burden palpated. Skin without jaundice or rash. Considering withdrawal symptoms (tongue fasciculations, n/v) vs migraine headache. Less concerning for intracranial pathology (SAH, stroke) as neuro exam intact, headache has been relieved with OTC medications, timing with medication withdrawal. Ordered work-up including CBC, CMP, ECG. Provided 975 mg PO tylenol, banana bag, 10 mg IV reglan, and 25 mg IV benadryl for improvement of nausea, dehydration, withdrawal. Will provide albuterol nebulizer tx for wheezing once pt vitals better controlled. Will continue to reassess pt and monitor for symptomatic improvement. 10/16/18 12:39 ECG: NSR, HR 77, intervals WNL. No TWIs or significant ST segment changes. No significant changes from prior ECG. 10/16/18 13:06 CBC and CMP WNL. Pt states symptoms much improved after fluids and medication. Calling Dr. Banerjee's office to ensure follow-up (next appointment time 11/02/17) . Sent albuterol inhaler and zofran ODT to pt pharmacy. 10/16/18 13:58 Did not hear back from Dr. Banerjee's office, advised pt to follow up tomorrow morning. Considering normal lab results and ECG, pt can be discharged to home with follow -up. Pt advised to follow-up with PCP and neurology in 1-2 days. Strict return precautions provided with pt understanding. 10/16/18 14:50 *DC/Admit/Observation/Transfer Diagnosis at time of Disposition: Opiate withdrawal - Discharge Dispostion Disposition: HOME Condition at time of disposition: Improved Decision to Admit order: No - Prescriptions Prescriptions: Albuterol Sulfate Inhaler - [Ventolin HFA Inhaler -] 1 - 2 inh PO Q4H PRN #1 inhaler PRN Reason: Wheezing Ondansetron [Zofran Odt -] 4 mg SL BID PRN #20 od.tablet PRN Reason: Nausea And/Or Vomiting - Referrals Referrals: Jonathon Sheldon MD [Primary Care Provider] - Torri Banerjee MD [Staff Physician] - - Patient Instructions Printed Discharge Instructions: DI for Drug or Alcohol Withdrawal Additional Instructions: You were seen in the ER today for withdrawal symptoms from opiate medications. The results of your labs today were normal. Please follow-up with your primary care doctor and Dr. Banerjee within 1-2 days to discuss your visit and make sure your symptoms have improved. Please return to the ER if you have any worsening pain that does not improve with Tylenol or ibuprofen, worsening headache, development of fevers or chills, loss of consciousness, inability to tolerate food or fluids, blood in your stool or vomit, or any other concerns. Please continue drinking plenty of fluids at home and eat as you can tolerate. You can continue taking ibuprofen or tylenol at home for pain and discomfort. I have sent an albuterol inhaler (for wheezing) and zofran (for nausea) to your pharmacy. Please take these as prescribed. - Post Discharge Activity
[2018-10-16 12:37] VITALS: BMI 26.5
[2018-10-16] MEDS ORDERED: SODIUM CHLORIDE 1,000 ML IV STA (12:38)
[2018-10-16] MEDS ORDERED: ONDANSETRON 4 MG/2 ML VIAL IVPUSH ONE (12:38)
[2018-10-16] MEDS ORDERED: ACETAMINOPHEN 325 MG TABLET (FP) PO ONE (12:38)
[2018-10-16] MEDS ORDERED: FOLIC ACID INJECTION - 1 MG, THIAMINE HCL 100 MG, MULTIVIT INJECTION ADULT 10 ML in SOD... IVPB ONE (12:40)
[2018-10-16] MEDS ORDERED: ONDANSETRON 4 MG/2 ML VIAL ONE (12:55)
[2018-10-16] MEDS ORDERED: ACETAMINOPHEN 325 MG TABLET (FP) ONE ×2 (12:55→12:56)
[2018-10-16] MEDS ORDERED: METOCLOPRAMIDE HCL INJECTION 10 MG/2 ML VIAL IVPUSH ONE (13:04)
[2018-10-16] MEDS ORDERED: METOCLOPRAMIDE HCL INJECTION 10 MG/2 ML VIAL ONE (13:18)
[2018-10-16 13:31] LABS: BASO % 0.7 % (0-2.0); EOS % 2.7 % (0-4.5); HEMATOCRIT 47.1 % (32.4-45.2); HEMOGLOBIN 16.2 GM/dL (10.7-15.3); LYMPH % 26.2 % (8-40); MCH 31.1 pg (25.7-33.7); MCHC 34.4 g/dl (32.0-36.0); MEAN CELL VOLUME 90.4 fl (80-96); MEAN PLT VOLUME 9.5 fl (7.5-11.1); MONO % 7.2 % (3.8-10.2); NEUT % 63.2 % (42.8-82.8); PLATELET COUNT 176 K/MM3 (134-434); RBC 5.21 M/mm3 (3.60-5.2); RDW 14.5 % (11.6-15.6); WHITE BLOOD COUNT 6.8 K/mm3 (4.0-10.0)
[2018-10-16 13:57] LABS: ALBUMIN 3.6 g/dl (3.4-5.0); ALK PHOS 95 U/L (45-117); ANION GAP 5 MMOL/L (8-16); BILIRUBIN,TOTAL 0.5 mg/dL (0.2-1); BLOOD UREA NITROGEN 9 mg/dL (7-18); CALCIUM 9.1 mg/dL (8.5-10.1); CHLORIDE 106 mmol/L (98-107); CO2 29 mmol/L (21-32); CREATININE 0.6 mg/dL (0.55-1.3); GLUCOSE,RANDOM 93 mg/dL (74-106); MAGNESIUM 2.4 mg/dL (1.8-2.4); POTASSIUM 3.8 mmol/L (3.5-5.1); SGOT/AST 14 U/L (15-37); SGPT/ALT 14 U/L (13-61); SODIUM 140 mmol/L (136-145); TOT PROT 6.7 g/dl (6.4-8.2)
--- NOTE | 2018-10-16 13:57 | PDOC ---
Attending Attestation - HPI HPI: 10/16/18 14:09 The patient is a 63 year old female, with a significant PMH of chronic pain syndrome (with opiate use), fibromyalgia, chronic knee pain, chronic back pain, seizures, who presents to the emergency department with 3 days of frontal headache, nausea with non bloody non bilious emesis, diarrhea (non bloody), decreased PO intake and chills. Patient reports being tapered from Percocet ( stopped taking 5/325 Qday) about 5-6 days ago with instructions from Dr. Banerjee (neurology). Patient states she discontinued seeing pain management Dr. Rose in April 2018. The patient denies chest pain, shortness of breath and dizziness. Denies fever, and constipation. Denies dysuria, frequency, urgency and hematuria. Allergies: NKDA Documentation prepared by Shelton Jack, acting as center medical and lab director for Timothy Hamlin MD. <Shelton Jack - Last Filed: 10/16/18 14:09> - Resident Resident Name: Fina Frias - ED Attending Attestation I have performed the following: I have examined & evaluated the patient, The case was reviewed & discussed with the resident, I agree w/resident's findings & plan, Exceptions are as noted - Physicial Exam PE: 10/16/18 16:38 Vitals: Triage Vital signs reviewed General Appearance: no acute distress, well nourished well developed, Neck: Supple;No Nucal rigidity Chest Wall: Nontender Cardiac: Regular rate and rhythym, no murmurs, no rubs, no gallops, Lungs: Clear to auscultation bilateral, good air movement bilaterally, Abdomen: Soft, non distended, normal bowel sounds, non tender to palpation Extremities: Full range of motion to all extremities, no cyanosis, clubbing, or edema Skin: Warm and dry, no rashes or lesions, no rash, no petechiae Psych: normal mood, normal affect - Medical Decision Making 10/16/18 17:20 63 y/o with chronic pain syndrome currently being weaned off opiates presents to the ED with very mild withdrawal symptoms mild headache nausea diarrhea and chills No overt flulike symptoms In the emergency department patient received antiemetics and IV fluids and currently feels much better asking to go home her laboratory analysis was unremarkable she will continue to follow up with her neurologist this week Findings, need for follow-up and strict return instructions discussed with patient. <Timothy Hamlin - Last Filed: 10/16/18 17:21>
[2018-10-16] MEDS ORDERED: ALBUTEROL SO4 0.083% IH SOL 2.5 MG/3 ML VIAL.NEB. NEB ONE ×2 (14:06→14:13)
[2018-10-16 14:56] VITALS: BP 150/78; PULSE 86; TEMP 98.3
--- NOTE | 2018-10-16 15:01 | EKG ---
Test Reason : Blood Pressure : / mmHG Vent. Rate : 077 BPM Atrial Rate : 077 BPM P-R Int : 162 ms QRS Dur : 084 ms QT Int : 360 ms P-R-T Axes : 071 048 062 degrees QTc Int : 407 ms NORMAL SINUS RHYTHM POSSIBLE LEFT ATRIAL ENLARGEMENT WHEN COMPARED WITH ECG OF 28-JAN-2017 13:30, NO SIGNIFICANT CHANGE WAS FOUND Confirmed by JUAN KRISHNA MD ([id number]) on 10/16/2018 3:01:23 PM Referred By: Confirmed By:JUAN KRISHNA MD
== END 2018-10-16 14:56 | disposition home or self-care (01) ==
LOC: JER 11:53
PROC: 3E033GC Introduction of Other Therapeutic Substance into Peripheral Vein, Percutaneous Approach (ICD-10-PCS; principal; 2018-10-16)
PROC: 3E033GC Introduction of Other Therapeutic Substance into Peripheral Vein, Percutaneous Approach (ICD-10-PCS; 2018-10-16)
PROC: 3E0F7GC Introduction of Other Therapeutic Substance into Respiratory Tract, Via Natural or Artificial Opening (ICD-10-PCS; 2018-10-16)
DX: F11.23 Opioid dependence with withdrawal (principal); Z86.69 Personal history of other diseases of the nervous system and sense organs
CPT/HCPCS: 36415; 80053; 83735; 85025; 93005; 93010; 94640; 96365; 96366; 96367; 99282-25; J7030